=== PATIENT | female | born 1990 | race Caucasian/White ===

== ENCOUNTER 2018-11-22 14:25 | Emergency (ER) | payer OTHER ==
[~2018-11-22] VITALS: Ht 167.6 cm; Wt 70.8 kg
[2018-11-22] MEDS ORDERED: DICLOFENAC SODI75 MG PO (15:32)
== END 2018-11-22 15:49 | disposition home or self-care (01) ==
LOC: ER 14:25
DX: S93.402A Sprain of unspecified ligament of left ankle, initial encounter (principal); W50.2XXA Accidental twist by another person, initial encounter; Y93.89 Activity, other specified; Y92.218 Other school as the place of occurrence of the external cause; Y99.8 Other external cause status; M12.872 Other specific arthropathies, not elsewhere classified, left ankle and foot